=== PATIENT | male | born 1940 | race Caucasian/White ===

== ENCOUNTER 2019-06-14 16:41 | Inpatient (IN) | payer MEDICARE, BC ==
--- NOTE | 2019-06-14 18:45 | NUR ---
ADD: LATE ENTRY SPOKE WITH DAUGHTER WHO IS OUT OF STATE. NURSE EXPLAINED WHAT OUR UNIT DID FAR MEDICATIONS, GROUPS AND DISCHARGE PLANNING. WE HAVE A SCHEDULE FOR THE DAY, PHONE CALLS, ITEMS ALLOWED AND NOT ALLOWED ON UNIT, PRN MEDICATIONS SUCH ATIVAN, HALDOL AND GEODON CAN BE USED. NURSE EXPLAINED THAT WE CAN USE CERTAIN MEDICATIONS IF HE DOES BECOME COMBATIVE WITH STAFF. SHE INQURIED HOW WE KEEP THEM FROM FALLING. NURSE EXPLAINED WE HAVE CHAIR ALARMS, BED ALARMS THAT ACTIVE DURING THE DAY AND NIGHT. BED ALARMS ON THE BED UNDER THEIR BACK SO IT RINGS BEFORE THEY GET UP SO THE STAFF HEARS AT ALL TIMES. SHE GAVE A HISTORY STATING HIS AND HIM MOVED HER TO RETIRE. HIS PASSED IN 2012 AND SHE HAS NOT SEEN HIM SINCE THAT TIME. SHE STATED SHE WAS LEAVING TO COME TO [place] AND WOULD BE ARRIVING TUESDAY. NURSE EXPRESSED UNDERSTANDING. SHE STATED SHE DID NOT KNOW DISCHARGE PLANS AT THAT TIME. REPORTED INFORAMTION TO ONCOMING SHIFT. CODE STATUS RECIEVED FROM DAUGHTER VERBAL CONSENT.
[2019-06-14 22:34] VITALS: BP 145/87; BMI 23.3
--- NOTE | 2019-06-14 23:23 | NUR ---
PATIENT CAME TO THIS UNIT FROM [facility], BROUGHT BY EMS VIA STRETCHER. PATIENT HAS BEEN INCREASINGLY CONFUSED AND AGGRESSIVE, PATIENT IS A POOR HISTORIAN, HE CAN REMEMBER THINGS FROM LONG AGO, HE CURRENTLY THINKS THAT HIS IS HERE, HE IS ORIENTED TO SELF ONLY. HE HAS SHOWN AGGRESSION BY HOLDING HIS FIST TOWARD THIS NURSE AND THREATENING TO HIT. PATIENT WAS ORIENTED TO ROOM AND SHOWN WHERE HIS BATHROOM IS AND HOW TO USE HIS FONSECA FOR ASSISTANCE.
[2019-06-15] MEDS ORDERED: BAYER CHEWABLE81 MG PO (01:21)
[2019-06-15] MEDS ORDERED: COLACE100 MG PO (01:22)
[2019-06-15] MEDS ORDERED: SEROQUEL100 MG PO (01:22)
[2019-06-15] MEDS ORDERED: SEROQUEL50 MG PO (01:23)
[2019-06-15] MEDS ORDERED: TOPROL XL100 MG PO (01:24)
[2019-06-15] MEDS ORDERED: COZAAR25 MG PO (01:25)
[2019-06-15] MEDS ORDERED: NEXIUM40 MG PO (01:26)
[2019-06-15 08:02] LABS: BASOPHILS 0.4 % (0-2); EOSINOPHILS 1.5 % (0-7); HEMATOCRIT 49.8 % (42.0-54.0); HEMOGLOBIN 16.3 g/dL (13.5-17.5); LYMPHOCYTES 17.3 % (15-50); MCH 28.6 pg (26.0-34.0); MCHC 32.7 g/dL (31.0-37.0); MCV 87.4 fL (80.0-100.0); MEAN PLATELET VOLUME 9.5 fL (7.4-10.4); MONOCYTES 7.5 % (2-11); NEUTROPHILS 72.3 % (40-80); PLATELET COUNT 240 10x3/uL (130-400); RDW 14.6 % (11.5-14.5); WBC 7.2 10x3/uL (4.8-10.8)
[2019-06-15 08:25] LABS: ALBUMIN 3.5 g/dL (3.4-5.0); ANION GAP 13.8 mmol/L (8-16); BILIRUBIN - TOTAL 0.76 mg/dL (0.2-1.3); CALCIUM 9.7 mg/dL (8.5-10.1); CARBON DIOXIDE 26.4 mmol/L (21.0-32.0); CREATININE - SERUM 1.1 mg/dL (0.6-1.3); LDL-HDL RATIO 3.3 ratio (1.5-3.5); POTASSIUM - SERUM 4.2 mmol/L (3.5-5.1); PROTEIN - SERUM 7.8 g/dL (6.4-8.2); THYROID STIMULATING HORMONE 1.06 uIU/mL (0.36-3.74)
[2019-06-15 10:09] VITALS: BP 153/53
[2019-06-15 14:41] VITALS: Wt 65.1 kg
--- NOTE | 2019-06-15 17:24 | NUR ---
PT DAUGHTER CALLED TO CHECK ON HIM. PASSCODE GIVEN. NURSE GAVE UPDATE PT EATING AT THIS TIME. SHE STATED WELL HAS HE COME OUT OF HIS ROOM TODAY?" NURSE EXPLAINED THAT WE DO STAY IN THE DAYAREA TO DO ACTIVITIES AND GROUPS FOR THE DAY. SHE STATED "OH WELL HOW HAS HIS MOOD BEEN TODAY.?" NURSE EXPLAINED HE REALLY HAS NOT TALKED MUCH EXCEPT WHEN SPOKEN TOO AND PT COULD ONLY TELL HIS NAME AND NOTHING ELSE. NURSE EXPLAINED WE DO ORIENT THE PTS EVERYDAY AND WHEN NEEDED. SHE STATED "WELL YOU MIGHT HAVE TO TELL HIM A FEW TIMES." SHE WANTED TO KNOW IF THERE WAS ANYTHING SHE NEEDED TO BRING HIM AND IF THEY SENT HIS WALLET AND CHECKBOOK WITH HIM." NURSE STATED ALL ITEMS WERE SENT TO ED LOCKUP. SHE STATED THEY WOULD COME BY TOMORROW AND BRING CLOTHES AND PICKUP THE CHECKBOOK AND WALLET.
[2019-06-15 20:11] VITALS: BP 136/76
--- NOTE | 2019-06-15 22:47 | NUR ---
PATIENT IS VERY CONFUSED, ORIENTED TO SELF ONLY, NO MEDS DUE THIS EVENING, CAN NOT MAKE NEEDS KNOWN, DEPENDENT UPON STAFF FOR ADL'S, NOT ABLE TO EFFECTIVELY PARTICIPATE IN GROUP. WILL FOLLOW POC
[2019-06-16 05:08] LABS: RAPID PLASMA REAGIN Non Reactive (Non Reactive)
--- NOTE | 2019-06-16 08:07 | NUR ---
SPOKE WITH PT DAUGHTER CARLOS. PASSCODE GIVEN. SHE WANTED TO KNOW HOW HE IS DOING THIS MORNING. NURSE GAVE AN UPDATE: PT JUST GOT UP FOR BREAKFAST, PREVIOUS SHIFT REPORTED THAT HE HAD A GOOD NIGHT. SHE STATED "DO THE DOCTORS COME IN DAILY?" NURSE STATED THEY DID. SHE WANTED TO KNOW IF SHE COULD TALK TO THE DOCTOR SINCE SHE COULD NOT VISIT HER DAD. NURSE EXPLAINED OUR MICA MINER BLASTING WOULD SET-UP OUR DOCTOR PHONE CALLS AFTER SEVERAL DAYS OF STAFF MEETING AND THEN ALL THE STAFF DOING WHAT WE CALL TEAM MEET. SHE STATED HAS HE COME IN YET?" NURSE ASKED FOR CLARIFICATION ON WHAT SHE MEANT. SHE STATED YESTERDAY YALL SAID HE DID NOT KNOW WHERE HE WAS AT. NURSE DID EXPLAIN HE HAS NOT BEEN ORIENTED SINCE HE HAS BEEN WITH US. HE IS ORIENTED TO HIS NAME ONLY." STATEMENT WAS MADE STATING "THATS NOT WHAT THEY SAID YESTERDAY." SHE THANKED THE NURSE. STATED SHE W[place] TODAY AND WOULD CHECK IN LATER.
--- NOTE | 2019-06-16 08:41 | HP ---
PATIENT: KATJA MAZARIEGOS MEDICAL RECORD: [id number] ACCOUNT: [id number] LOCATION:[facility]1 : 38 ADMISSION DATE: 06/14/19 PCP: DEJUAN RODRIGUEZ MD HISTORY AND PHYSICAL EXAMINATION IDENTIFYING DATA: The patient is 78 years old and he is admitted to the hospital on a voluntary basis. CHIEF COMPLAINT: Confusion. HISTORY OF PRESENT ILLNESS: The patient lives at home alone. Apparently, his 7 years ago and his children live out of state. He clearly has developed dementia that is advanced. He fell at home and was taken to [facility]. He was found to have a small subdural hematoma that was not in need of surgical attention. He was sent to the rehab unit there for deconditioning, but was unable to adequately participate in activities there, was confused, agitated, and even combative with the staff. They subsequently referred him here. It is unclear where he fell, may not have been at home, but in a parking lot of the store of some kind, the information he gives and the records are not consistent. PAST MEDICAL HISTORY: Significant for hypertension, previous WI, chest pain, and diverticular disease. PAST SURGICAL HISTORY: He has also had a radical prostatectomy, tonsillectomy, and hemorrhoidectomy. He has also had cardiac angioplasty. PAST PSYCHIATRIC HISTORY: Unknown. FAMILY HISTORY: Unknown. ALLERGIES: INCLUDE RESTORIL AND STATIN DRUGS. HE SIMILARLY DEVELOPED A RASH TO THE TETANUS TOXOID. CURRENT MEDICATIONS: Include Metoprolol, Plavix, Cozaar, Nexium, Lexapro, pravastatin, and Metamucil. SOCIAL HISTORY: As mentioned above, the patient is originally from [place]. He has no family here. His is and he is a former cigarette smoker, but has no history of alcohol abuse. MENTAL STATUS EXAMINATION: The patient is awake, alert, and oriented to person and place, but not to time or situation. His mood is flat. His affect is constricted. Thought processes are circumstantial. Memory, concentration, and abstraction abilities are moderately impaired and he denies any intent to harm himself or others as well as any active psychotic symptoms. ASSESSMENT: AXIS I: Major neurocognitive disorder of the Alzheimer's type with behavioral disturbances. AXIS II: None. AXIS III: Hypertension, coronary artery disease, and subdural hematoma. AXIS IV: Moderate. AXIS V: Global assessment of functioning 30. HISTORY AND PHYSICAL [id number] KATJA MAZARIEGOS PLAN: At this time, the patient is admitted to the hospital for a comprehensive evaluation. He will be treated with mood stabilizing and memory enhancing medications as deemed appropriate. His long-term prognosis is guarded. He clearly is going to need 56-zggq-g-day supervision and it is my understanding that one of his children are coming from [place] soon to assist with his care. TRANSINT:[id number] Voice Confirmation ID: [id number] DOCUMENT ID: [id number] VALERIO BRICENO MD at 0841 CC: [id number] DICTATION DATE: 06/15/191903 OIL AGENT: 06/15/192016 ADM IN [facility] [address] [place] [address]
[2019-06-16 10:35] VITALS: BP 163/88
[2019-06-16 20:00] VITALS: BP 117/64
--- NOTE | 2019-06-16 21:54 | NUR ---
PATIENT IS VERY CONFUSED, EASILY AGITATED, DOES NOT KNOW HIS PHYSICAL LIMITATIONS, NO MEDS DUE @ HS. WILL FOLLOW POC
[2019-06-17 08:47] VITALS: BP 135/67
--- NOTE | 2019-06-17 13:10 | NUR ---
RECEIVED IN HALLWAY OUTSIDE OF NURSES STATION. VERY CONFUSED. ANXIOUS. AGITATED. AGGRESSIVE WITH CARE AND REDIRECTION. YELLING OUT. CONTINUOUSLY GETTING UP WITHOUT ASSISTANCE. UNABLE TO REDIRECT. PRN ATIVAN 0.5 MG IM GIVEN FOR ANXIETY AND PRN HALDOL 2 MG GIVEN FOR PSYCHOTIC UNSAFE BEHAVIOR. CONTINUES TO BE UNCOOPERATIVE AND RESISTIVE AT THIS TIME. CONTINUE PLAN OF CARE.
--- NOTE | 2019-06-17 13:42 | PN ---
PATIENT:KATJA MAZARIEGOS MEDICAL RECORD: [id number] LOCATION:[facility] ADMISSION DATE: 06/14/19 PROGRESS NOTE DATE OF SERVICE: 06/16/2019 SUBJECTIVE: The patient's case was discussed with staff. He has no new complaint. OBJECTIVE: The patient is in good behavioral control. He has no thoughts of harming himself or others. He did sleep well last night. ASSESSMENT: Dementia. PLAN: The patient will be maintained on current medicines. His long-term prognosis is guarded. His daughter is coming from out of state today. Hopefully, she is going to want to assist in his placement and care. TRANSINT:[id number] Voice Confirmation ID: [id number] DOCUMENT ID: [id number] VALERIO BRICENO MD at 1342 CC: [id number] DICTATION DATE: 06/16/19 0858 BI TRI OPERATOR: 06/16/19 0929 ADM IN [facility] [address] [place] [address]
--- NOTE | 2019-06-17 13:45 | NUR ---
PRN ATIVAN AND HALDOL INEFFECTIVE. PATIENT IS STILL AGGRESSIVE WITH STAFF. YELLING OUT. CONTINUOUSLY GETTING UP. UNCOOPERATIVE AND RESISTIVE WITH CARE AND REDIRECTION.
--- NOTE | 2019-06-17 19:14 | NUR ---
RECEIVED IN DAYROOM. SITTING IN A RECLINER WITH EYES OPEN. CALM AND COOPERATIVE WITH CARE AND ASSESSMENT. NO SIGNS OF AGGRESSION. CONFUSED. REDIRECT AND REORIENT NEEDED. CONTINUES TO SIT CALMLY IN DAYROOM. CONTINUE PLAN OF CARE.
[2019-06-17 19:24] VITALS: BP 128/57
[2019-06-18 08:46] VITALS: BP 144/79
--- NOTE | 2019-06-18 12:00 | NUR ---
RECEIVED IN HALLWAY OUTSIDE OF NURSES STATION. CALM AND COOPERATIVE WITH CARE AND ASSESSMENT. NO AGITATION. NO AGGRESSION TODAY. REDIRECT AND REORIENT NEEDED. EATING LUNCH AT THIS TIME. CONTINUE PLAN OF CARE.
--- NOTE | 2019-06-18 14:00 | NUR ---
WALLET, CHECK BOOK, WATCH, KEYS, AND MONEY SENT HOME WITH DAUGHTER, CARLOS.
--- NOTE | 2019-06-18 21:09 | NUR ---
B.) PT IS ALERT AND ORIENTED TO SELF ONLY. HE HAS POOR INSIGHT INTO HIS SITUATION. HE IS UNABLE TO AMBULATE WITHOUT ASSIST. HE IS CALM AND COOPERATIVE WITH STAFF. HE HAS A FLAT AFFECT AND IS CONFUSED ABOUT WHERE HE IS AT THIS TIME. I.) PROVIDED PM MEDICATIONS PRESCRIBED. REDIRECT OFTEN. R.) COMPLIANT WITH ALL MEDICATIONS. EASY TO REDIRECT AT TIMES. P.) WILL CONTINUE TO MONITOR.
[2019-06-18 21:35] VITALS: BP 106/60
[2019-06-19 07:53] VITALS: BP 129/71
--- NOTE | 2019-06-19 08:30 | NUR ---
RECEIVED IN HALLWAY OUTSIDE OF NURSES STATION. CALM AND COOPERATIVE WITH CARE AND ASSESSMENT. NO AGGRESSIVE BEHAVIOR. REDIRECT AND REORIENT NEEDED. EATING BREAKFAST AT THIS TIME. CONTINUE PLAN OF CARE.
--- NOTE | 2019-06-19 09:25 | NUR ---
staff continue to attempt to get the UA but pt is combative with staff during these attempts. will continue to attempt.
--- NOTE | 2019-06-19 13:39 | PN ---
PATIENT:KATJA MAZARIEGOS MEDICAL RECORD: [id number] LOCATION:[facility]rit[facility]112 ADMISSION DATE: 06/14/19 PROGRESS NOTE DATE OF SERVICE: 06/18/2019 SUBJECTIVE: The patient's case was discussed with staff. He has no new complaint. OBJECTIVE: The patient's daughter has made it to town, but at this point she is looking for guidance from us about what her father needs. She is concerned that he is very different and how he was when she talked to him on the phone just a few weeks ago. ASSESSMENT: Dementia. PLAN: This patient has an advanced cognitive disease, probably Alzheimer's. The fall and the subdural hematoma are not the cause of his current mental status. This is a longstanding process and he is well advanced in it. He cannot live independently. The daughter is wanting him to get back to the situation he was in so that she can take him home and maybe stay with him a little while and then leave and go back to [place]. That is an unrealistic expectation. He is in need of 62-kdgx-s-day supervision. What needs to be worked out at this point is which setting will be the least restrictive. TRANSINT:[id number] Voice Confirmation ID: [id number] DOCUMENT ID: [id number] VALERIO BRICENO MD at 1339 CC: [id number] DICTATION DATE: 06/18/19 1542 NUT PACKER: 06/18/19 1550 ADM IN [place] [id number] [place] [address]
--- NOTE | 2019-06-19 13:39 | PN ---
PATIENT:KATJA MAZARIEGOS MEDICAL RECORD: [id number] LOCATION:[facility] ADMISSION DATE: 06/14/19 PROGRESS NOTE DATE OF SERVICE: 06/17/2019 SUBJECTIVE: The patient's case was discussed with staff. He has no new complaint. OBJECTIVE: The patient is sleeping and eating reasonably well. He has limited insight about his situation. He has been calmer since the Xanax was started. ASSESSMENT: Dementia. PLAN: Current medicines have been reviewed and will be maintained. Long-term prognosis is guarded. Both supportive and educational interventions were made. TRANSINT:[id number] Voice Confirmation ID: [id number] DOCUMENT ID: [id number] VALERIO BRICENO MD at 1339 CC: [id number] DICTATION DATE: 06/18/19 1541 NETWORK SECURITY ENGINEER: 06/18/19 1545 ADM IN [place] [id number] [place] [id number]
[2019-06-19 19:30] VITALS: BP 127/70
--- NOTE | 2019-06-19 19:32 | NUR ---
RECEIVED IN BEDROOM. RESTING IN BED WITH EYES OPEN. RESTLESS. ATTEMPTS TO STAND WITHOUT ASSIST. JAKY ALARM ON. CALM AND COOPERATIVE WITH CARE AND ASSESSMENT. NO SIGNS OF AGGRESSION. CONTINUES TO REST EYES OPEN ON BED. CONTINUE PLAN OF CARE.
--- NOTE | 2019-06-19 23:33 | NUR ---
ATTEMPTS TO STAND WITHOUT ASSIST CONSTANTLY.
[2019-06-20 07:46] VITALS: BP 148/77
[2019-06-20 08:00] VITALS: BP 148/77
--- NOTE | 2019-06-20 10:20 | NUR ---
PT SITTING IN CHAIR WITH EYES OPEN. RESP EVEN AND NONLABORED. PT IS CONFUSED AND NOT ORIENTED. REDIRECT AND REORIENT NEEDED. PT ATTEMPTS TO STAND WITHOUT ASSISTANCE. PT COMPLIANT WITH CRUSH MEDS, VITALS AND ASSESSMENTS. CHAIR ALARM IN PLACE AND ACTIVE. WILL CONT PLAN OF CARE.
--- NOTE | 2019-06-20 11:20 | PN ---
PATIENT:KATJA MAZARIEGOS MEDICAL RECORD: [id number] LOCATION:[facility]rit[facility]112 ADMISSION DATE: 06/14/19 PROGRESS NOTE DATE OF SERVICE: 06/19/2019 SUBJECTIVE: The patient's case was discussed with staff. He has no new complaint. OBJECTIVE: The patient is in good behavioral control. He has poor insight about his situation. He tolerates his medicines well. ASSESSMENT: Dementia. PLAN: Current medicines have been reviewed and will be maintained. The patient fell this morning. Dr. Lezama was here and addressed the situation and it does not appear he has any injury. TRANSINT:[id number] Voice Confirmation ID: [id number] DOCUMENT ID: [id number] VALERIO BRICENO MD at 1120 CC: [id number] DICTATION DATE: 06/19/19 1421 CONDITIONING ROOM WORKER: 06/19/19 1528 ADM IN [place] [id number] [place] [id number]
[2019-06-20 20:41] VITALS: BP 143/70
--- NOTE | 2019-06-20 21:58 | NUR ---
B)RECEIVED PATIENT SITTING IN A CHAIR AT THE NURSES STATION. CONFUSED AND DISORIENTED. WHEN ASKED IF HE KNOWS WHERE HE IS PATIENT RESPONDS "WHERE YOU ARE. WHERE YOU WERE LAST WEEK. RELATES REASON FOR HOSPITALIZATION "I COME HERE QUITE OFTEN." I)ADMINISTER MEDS AND MONITOR COMPLIANCE. REORIENT NEEDED. R)MED COMPLIANT. POOR REORIENTATION DUE TO IMPAIRED ABILITY TO COMPREHEND, PROCESS AND RETAIN INFORMATION. P)CONTINUE POC AND PROVIDE SAFE ENVIRONMENT.
[2019-06-21 11:00] VITALS: BP 144/75
--- NOTE | 2019-06-21 12:45 | NUR ---
PT SITTING IN CHAIR AT TABLE AT THIS TIME. CONFUSED AND DISORIENTED. PT CAN NOT STATE WHERE HE IS AT THIS TIME. PT IS ALERT TO SELF ONLY. REDIRECT AND REORIENT NEEDED. POOR REORIENATTION DUE TO IMPAIRED ABILITY TO COMPREHEND. CHAIR ALARM IN PLACE AND ACTIVE. WILL CONT TO MONITOR. COMPLIANT WITH MEDS, VITALS AND ASSESSMENTS. WILL CONT PLAN OF CARE.
--- NOTE | 2019-06-21 13:45 | NUR ---
Nutrition Follow-up: PO intake fluctuates although better yesterday (50-100%) than the day before (0-20%). Noted Megace started 06/19. Diet: Regular PO intake: 51% avg x 9 meals Wt: 157# (06/16); 157# (06/14) Last BM: 06/19 No new labs Meds noted: Megace, vitamin D, Senokot, Protonix -Encourage PO intake and honor food preferences. -Offer nutrition supplements. -Monitor wt. -RD following.
--- NOTE | 2019-06-21 14:05 | PN ---
PATIENT:KATJA MAZARIEGOS MEDICAL RECORD: [id number] LOCATION:[facility] ADMISSION DATE: 06/14/19 PROGRESS NOTE DATE OF SERVICE: 06/20/2019 SUBJECTIVE: The patient's case was discussed with staff. He has no new complaint. OBJECTIVE: The patient has been significantly agitated and difficult to redirect. He has very poor insight about his situation. ASSESSMENT: Dementia. PLAN: The patient is going to be treated with a low dose of Trilafon. Trilafon is being used to treat his underlying confused, agitated behavior. He will be monitored for clinical changes associated with its use. His long-term prognosis is guarded. TRANSINT:[id number] Voice Confirmation ID: [id number] DOCUMENT ID: [id number] VALERIO BRICENO MD at 1405 CC: [id number] DICTATION DATE: 06/20/19 1141 COT ASSEMBLER: 06/20/19 1634 ADM IN [facility] [address] [place] [address]
--- NOTE | 2019-06-21 17:52 | NUR ---
SPOKE WITH PT DAUGHTER. PASSCODE GIVEN. NURSE CALLED TO CHECK IF PT WAS EATING. NURSE LET THE DAUGHTER KNOW HE LAID DOWN TO SLEEP AND IN ABOUT 20 MINUTES WE WOULD BE WAKING THEM UP TO DO VITALS. SHE VERBALIZIED UNDERSTANDING AND WOULD CALL BACK.
--- NOTE | 2019-06-21 22:25 | NUR ---
B) Patient is alert and oriented to self, very confused and can not understand simple instructions unless repeated several times, I) Administered scheduled medications as ordered, monitored for safety, redirected as needed, R) Medication compliant, poor short term memory, unable to retain information, P) Continue plan of care.
--- NOTE | 2019-06-22 09:37 | NUR ---
SPOKE WITH PT DAUGHTER THIS SHIFT. PASSCODE GIVEN. SHE WANTED TO KNOW IF HE HAD A BETTER NIGHT THAN THE PREVIOUS NIGHT. NURSE EXPLAINED THAT FARM SERVICE ADVISER REPORTED THAT HE WAS UP MOST OF THE NIGHT PACING. SHE STATED "HE WAS PACING? WALKING BY HIMSELF?" NURSE STATED "HE WAS WALKING UNASSISTED BUT MONITORED BY STAFF. PHYSICAL THERAPY DID SIGN HIM ON STATED HE WAS OKAY TO AMBUALTE ASSISTED OR WITH WALKER." SHE VERBALIZIED SOME UNDERSTANDING. SHE STATED SHE JUST WANTED TO SEE HOW HE WAS DOING AND SHE WOULD CHECK BACK LATER.
[2019-06-22 11:05] VITALS: BP 140/82
--- NOTE | 2019-06-22 11:35 | NUR ---
PT IS PACING AT THIS TIME. PT IS UNSTEADY AND STAFF ASSISTING PT WITH AMBULATION. PT IS CONFUSED AND DISORIENTED. ALERT TO SELF ONLY. POOR INSIGHT TO SITUATION. PT IS LOOKING FOR HIS KEYS AND WALLET. STAFF ATTEMPTS TO REDIRECT. REDIRECT AND REORIENT NEEDED. PT IS HALLUCINATING PICKING AT THINGS IN THE AIR. PT IS DEMANDING HIS WALLET, KEYS AND LEAVE. REDIRECT PT AT THIS TIME. WILL CONT TO MONITOR.
--- NOTE | 2019-06-22 12:50 | NUR ---
PT IS PACING AND EXIT-SEEKING. PT IS UNREDIRECTABLE AT THIS TIME. PT IS YELLING OUT, WANTING TO CALL A VENEER JOINTER HELPER AND [employer] PEOPLE. UNSTEADY ON HIS FEET FROM PACING ALL NIGHT. ATIVSN 0.5 MG PO ADMINISTERED PER DR. BRICENO ORDER FOR ANXIETY. WILL REASSESS.
--- NOTE | 2019-06-22 13:48 | NUR ---
PRN NOT EFFECTIVE PT YELLING AT OTHER PEERS AT THIS TIME.
--- NOTE | 2019-06-22 14:53 | NUR ---
PT CONTS TO YELL OUT. ATTEMPTING TO GET UP, LOOKING FOR HIS KEYS, WANTING TO LEAVE AND MILD AGIATION WHEN REDIRECTED. ATIVAN 0.[address] BRICENO ORDER. WILL CONT TO MONITOR.
--- NOTE | 2019-06-22 16:23 | NUR ---
PT CONTS TO BE 1:1 DUE TO INCREASED AGITATION AND DROWSINESS. PT IS DROWSY. WILL CONT TO MONITOR.
--- NOTE | 2019-06-22 17:52 | NUR ---
DELL SON CALLED. PASSCODE GIVEN. HE SPOKE WITH PT. HE ASKED WHEN HE COME BACK TO [place] TO GET GUARDIANSHIP IF HE COULD STOP TO SEE HIS DAD THROUGH THE DOOR. NURSE STATED IF HE CALLED HE COULD. THAT WOULD BE FINE.
[2019-06-22 20:00] VITALS: BP 125/65
--- NOTE | 2019-06-22 23:24 | NUR ---
B.) PT IS ALERT AND ORIENTED TO SELF ONLY. HE IS RECEIVED IN THE NURSES STATION. HE IS UNSTEADY ON HIS FEET AND VERY CONFUSED SO HE IS TO BE UNDER 1:1 SUPERVISION. HE HAS NO SHORT TERM MEMORY AND IS RESTLESS AND ATTEMPTS TO GET UP FREQUENTLY. I.) PROVIDED PM MEDICATIONS PRESCRIBED. REDIRECT CONSTANTLY. R.) COMPLIANT WITH ALL MEDICATIONS. DIFFICULT TO REDIRECT. P.) WILL CONTINUE TO MONITOR.
[2019-06-23 08:07] VITALS: BP 119/60
--- NOTE | 2019-06-23 08:39 | NUR ---
The patient is in the nurses station resting easily, eyes closed, even, unlabored respirations. At this time he is not awakening for the assessment or vital signs. Will monitor his mood and behavior as he awakens. Provide prescribed meds. Continue POC.
[2019-06-23 10:13] VITALS: BP 119/60
--- NOTE | 2019-06-23 20:42 | NUR ---
B.) PT IS ALERT AND ORIENTED TO SELF AND SITUATION. HE IS UNSURE OF WHAT HOSPITAL HE IS IN AT THIS TIME. HE IS RECEIVED OUTSIDE THE NURSING STATION SITTING IN A GERICHAIR. HE IS YELLING OUT AT TIMES. HALLUCINATING FAMILY MEMBERS. HE IS COUCHING UP COPIOUS AMOUNTS OF YELLOW TINGED MUCUS. I.) PROVIDED PM MEDICATIONS PRESCRIBED. REDIRECT OFTEN. R.) COMPLIANT WITH ALL MEDICATIONS. DIFFICULT TO REDIRECT AT TIMES. P.) WILL CONTINUE TO MONITOR.
[2019-06-24 05:17] VITALS: BP 133/73
--- NOTE | 2019-06-24 07:39 | NUR ---
The patient has been yelling and screaming for [employer] or to get up and go home. Staff stand by him and he says "help, help" ask him what he needs and he says "I forgot" Staff step away and he screams and screams. Provide ativan 0.5 mg po and haldol 2 mg po. Monitor the patient's mood and behavior.
[2019-06-24 08:24] VITALS: BP 159/86
--- NOTE | 2019-06-24 13:35 | NUR ---
The patient has started to yell and scream and staff stood him up and walked him so that he can get off of his bottom, but he continues to scream after he was sat down. He yells "Please" but doesn't say what he needs. Provide ativan 0.5 mg po, will monitor.
--- NOTE | 2019-06-24 14:30 | NUR ---
The patient is quiet only if someone sits right next to him.
--- NOTE | 2019-06-24 15:59 | NUR ---
The patient continues to yell.
--- NOTE | 2019-06-24 16:33 | NUR ---
The patient continues to yell out, provided a pillow behind his neck, he threw it on the floor. Repositioned him, gave him iced water, but he continues to yell and ask for help, he is calling out different names. Haldol 2 mg IM in right deltoid given, will monitor.
--- NOTE | 2019-06-24 17:30 | NUR ---
The patient ate a little bit of dinner, he did not scream at that time. Haldol 2 mg IM in his left deltoid. Monitor behavior.
--- NOTE | 2019-06-24 17:30 | NUR ---
The patient ate dinner and he was quiet while he was eating, but now that he is finished eating he is back to yelling. Calling out to his Boss and asking for help, yelling "Fire in the hole."
--- NOTE | 2019-06-24 18:38 | NUR ---
RECEIVED IN HALLWAY OUTSIDE OF NURSES STATION. RESTING QUIETLY IN A RECLINER WITH EYES OPEN. CALM AND COOPERATIVE WITH CARE AND ASSESSMENT. NO SIGNS OF AGGRESSSION. REDIRECT AND REORIENT NEEDED. CONTINUES TO REST QUIETLY IN RECLINER. CONTINUE PLAN OF CARE.
--- NOTE | 2019-06-24 18:49 | NUR ---
RECEIVED IN HALLWAY SITTING IN A RECLINER OUTSIDE OF NURSES STATION. YELLING OUT LOUDLY. COOPERATIVE WITH CARE AND ASSESSMENT. NO SIGNS OF AGGRESSION. INCREASING RESTLESSNESS. REDIRECT AND REORIENT NEEDED. CONTINUES TO YELL OUT LOUDLY. CONTINUE PLAN OF CARE.
[2019-06-24 18:55] VITALS: BP 131/69
--- NOTE | 2019-06-25 00:19 | NUR ---
PATIENT YELLING OUT TO UNSEEN OTHERS. VERY CONFUSED. INCREASING ANXIETY. PRN ATIVAN 0.5 MG IM GIVRN FOR ANXIETY AND PRN HALDOL 2 MG IM GIVEN FOR PSYCHOTIC BEHAVIOR. CONTINUE TO MONITOR.
--- NOTE | 2019-06-25 04:40 | NUR ---
RESTING QUIETLY WITH EYES CLOSED.
[2019-06-25 08:29] VITALS: BP 163/78
--- NOTE | 2019-06-25 12:00 | NUR ---
RECEIVED IN HALLWAY OUTSIDE OF NURSES STATION. CALM AND COOPERATIVE WITH CARE AND ASSESSMENT. YELLING OUT AT TIMES. BECOMES AGITATED WITH REDIRECTION. REDIRECT AND REORIENT NEEDED. EATING AT THIS TIME. CONTINUE PLAN OF CARE.
--- NOTE | 2019-06-25 13:26 | PN ---
PATIENT:KATJA MAZARIEGOS MEDICAL RECORD: [id number] LOCATION:[facility] ADMISSION DATE: 06/14/19 PROGRESS NOTE DATE OF SERVICE: 06/21/2019 SUBJECTIVE: The patient's case was discussed with staff. He has no new complaint. OBJECTIVE: The patient is in good behavioral control with limited insight about his situation. He has been yelling some, but does appear to be calmer. TRANSINT:[id number] Voice Confirmation ID: [id number] DOCUMENT ID: [id number] VALERIO BRICENO MD at 1326 CC: [id number] DICTATION DATE: 06/21/19 1508 COIL TAPER: 06/21/19 1526 ADM IN [place] [id number] [place] [address]
--- NOTE | 2019-06-25 18:57 | NUR ---
RECEIVED IN DAYROOM. SITTING IN A RECLINER AT THE TABLE. CALM AND COOPERATIVE WITH CARE AND ASSESSMENT. NO SIGNS OF AGGRESSION. NOT YELLING OUT AT THIS TIME. REDIRECT AND REORIENT NEEDED. CONTINUES TO SIT CALMLY. CONTINUE PLAN OF CARE.
[2019-06-25 19:17] VITALS: BP 194/150
--- NOTE | 2019-06-25 22:52 | NUR ---
AWAKE. YELLING OUT AT TIMES.
[2019-06-26 07:59] VITALS: BP 158/83
--- NOTE | 2019-06-26 10:28 | PN ---
PATIENT:KATJA MAZARIEGOS MEDICAL RECORD: [id number] LOCATION:[facility] ADMISSION DATE: 06/14/19 PROGRESS NOTE DATE OF SERVICE: 06/25/2019 SUBJECTIVE: The patient's case was discussed with staff. He has no new complaint. OBJECTIVE: The patient was significantly and seriously agitated last night. He did receive p.r.n. Haldol and Ativan secondary to that agitation. Today, he is a little sedated, probably secondary to that medication he received at midnight. ASSESSMENT: Dementia. PLAN: I am going to increase the patient's Namenda. Namenda is being used to treat his underlying cognitive impairment. He will be monitored for clinical changes associated with its use. TRANSINT:[id number] Voice Confirmation ID: [id number] DOCUMENT ID: [id number] VALERIO BRICENO MD at 1028 CC: [id number] DICTATION DATE: 06/25/19 1527 VISITOR SERVICES TECHNICIAN: 06/25/19 2317 ADM IN [place] [id number] [place] [id number]
--- NOTE | 2019-06-26 11:13 | NUR ---
RECEIVED IN HALLWAY OUTSIDE OF NURSES STATION. CALM AND COOPERATIVE WITH CARE AND ASSESSMENT. NO AGITATION. NO AGGRESSION. REDIRECT AND REORIENT NEEDED. PARTICIPATING IN GROUP AT THIS TIME. CONTINUE PLAN OF CARE.
--- NOTE | 2019-06-26 11:32 | NUR ---
SW SPOKE TO PT'S DTR. SW GAVE UPDATE ON PT'S CONDITION. SHE WANTS PT REFERRED TO [facility]. SW EXPLAINED WHEN PT IS MORE STABLE SW WILL DO A REFERRAL. PT'S DTR VOICED UNDERSTANDING OF DISCUSSION AND STATED SHE WAS APPRECIATIVE OF PT'S CARE.
--- NOTE | 2019-06-26 19:49 | NUR ---
RECEIVED IN DAYROOM. RESTING IN RECLINER WITH EYES CLOSED. CALM AND COOPERATIVE WITH CARE AND ASSESSMENT. NO SIGNS OF AGGRESSION. REDIRECT AND REORIENT NEEDED. RESTING QUIETLY IN A RECLINER WITH EYES CLOSED. CONTINUE PLAN OF CARE.
[2019-06-26 21:00] VITALS: BP 119/59
[2019-06-27 09:04] VITALS: BP 127/81
--- NOTE | 2019-06-27 09:39 | PN ---
PATIENT:KATJA MAZARIEGOS MEDICAL RECORD: [id number] LOCATION:[facility] ADMISSION DATE: 06/14/19 PROGRESS NOTE DATE OF SERVICE: 06/26/2019 SUBJECTIVE: The patient's case was discussed with staff. He has no new complaint. OBJECTIVE: The patient denies intent to harm himself or others. He generally is tolerating his medicines well. ASSESSMENT: Dementia. PLAN: Current medicines have been reviewed and will be maintained. Long-term prognosis is guarded. Both supportive and educational interventions were made. TRANSINT:[id number] Voice Confirmation ID: [id number] DOCUMENT ID: [id number] VALERIO BRICENO MD at 0939 CC: [id number] DICTATION DATE: 06/26/19 1301 DECALER: 06/26/19 1641 ADM IN [facility] [address] [place] [address]
--- NOTE | 2019-06-27 12:00 | NUR ---
RECEIVED IN HALLWAY OUTSIDE OF NURSES STATION. CALM AND COOPERATIVE WITH CARE AND ASSESSMENT. NO AGGRESSIVE BEHAVIOR BUT BECOMES AGITATED WITH REDRIECTION AT TIMES. REDIRECT AND REORIENT NEEDED. EATING LUNCH AT THIS TIME. CONTINUE PLAN OF CARE.
[2019-06-27 20:38] VITALS: BP 126/75
--- NOTE | 2019-06-27 20:44 | NUR ---
B.) PT IS ALERT AND ORIENTED TO SELF ONLY. HE HAS POOR INSIGHT INTO HIS SITUATION. HE IS RECEIVED OUTSIDE THE NURSES STATION IN A GERICHAIR. HE YELLS OUT AT TIMES. HE HAS A PRODUCTIVE COUGH. I.) PROVIDED PM MEDICATIONS. REDIRECT OFTEN. R.) COMPLIANT WITH ALL MEDICATIONS. EASY TO REDIRECT A TIMES. P.) WILL CONTINUE TO MONITOR.
[2019-06-28 08:56] VITALS: BP 144/66
--- NOTE | 2019-06-28 10:07 | NUR ---
REC'D PT LAYING IN BED THIS A.M. PT SLEPT 7.2 HOURS. PREVIOUS SHIFT REPORTED PT YELLING OUT AT TIMES. PT IS ALERT TO SELF ONLY. CONFUSED AND DISORIENTED. PT HAS POOR INSIGHT TO SITUATION. PT WAS YELLING OUR DURING NURSE ASSESSMENT STATING "HELP. HELP. HELP" WHEN ASKED PT COULD NOT STATE WHY HE NEEDED HELP. PT IS COMPLAINT WITH MEDS, VITALS AND ASSESSMENTS. PT DOES HAVE A COUGH THAT IS AT TIMES PRODUCTIVE. PT DOES HAVE A RED AREA NOTED TO BUTTOCKS. CHAIR ALARM IN PLACE AND ACTIVE. NO BEHAVIORS NOTED FROM PREVIOUS SHIFT. WILL CONT PLAN OF CARE.
--- NOTE | 2019-06-28 13:01 | PN ---
PATIENT:KATJA MAZARIEGOS MEDICAL RECORD: [id number] LOCATION:[facility] ADMISSION DATE: 06/14/19 PROGRESS NOTE DATE OF SERVICE: 06/26/2019 SUBJECTIVE: The patient's case was discussed with staff. He has no new complaint. OBJECTIVE: The patient is not sleeping adequately. He is disorganized. He is only partially oriented. He denies that he would seek to harm himself or others. ASSESSMENT: Dementia. PLAN: The patient will be treated with trazodone at a higher dose. Trazodone is being used to treat his underlying insomnia. He will be monitored for clinical changes associated with its use. TRANSINT:[id number] Voice Confirmation ID: [id number] DOCUMENT ID: [id number] VALERIO BRICENO MD at 1301 CC: [id number] DICTATION DATE: 06/27/19 1649 SORTER PRICER: 06/28/19 0040 ADM IN [place] [id number] [place] [id number]
--- NOTE | 2019-06-28 14:32 | NUR ---
Nutrition Follow-up: Pt not eating well. Ate 0-20% of meals yesterday. Diet: Regular, Mech Soft PO intake: 17% avg x 9 meals Wt: 155# (06/23); 157# (06/16); 157.8# (06/13) Last BM: 06/25 No new labs Meds noted: Megace, vitamin D, Senokot, Protonix -Encourage PO intake and honor food preferences within diet restrictions. -+Ensure with meals. -Monitor wt. -RD following.
--- NOTE | 2019-06-28 18:33 | NUR ---
PT CONTS TO COUGH UP GREEN MUCOUS AND COUGHING. PT TOLERATES COUGH MEDICINE WELL. WILL CONT TO MONITOR. LUNG SOUNDS CONT TO BE CLEAR.
[2019-06-28 19:32] VITALS: BP 120/58
--- NOTE | 2019-06-28 20:21 | NUR ---
B.) PT IS ALERT AND ORIENTED TO SELF ONLY. HE IS CALM AND COOPERATIVE WITH STAFF. HE CO OF LEFT SHOULDER PAIN. HE IS RECIEVED IN THE DAYROOM WATCHING TV. I.) PROVIDED PM MEDICATIONS PRESCRIBED. PROVIDED A HEATING PAD TO HIS LEFT SHOULDER. REDIRECT OFTEN. R.) COMPLIANT WITH ALL MEDICATIONS. EASY TO REDIRECT. P.) WILL CONTINUE TO MONITOR.
--- NOTE | 2019-06-29 07:56 | NUR ---
The patient is awake and alert, he is pleasant with less yelling this am. He is more awake and he is attempting to converse with the other patients. He tries to stand and walk, but needs staff assist to stand. Provide prescribed meds. The patient is compliant with meds. He has poor insight into his situation. He said "I'll be doing fine when I get out of here." Continue POC.
[2019-06-29 08:41] VITALS: BP 129/62
--- NOTE | 2019-06-29 12:58 | NUR ---
On assessing the patients buttocks, noted a small open area to the inner right side of his buttocks. It is approximately 3cm x 3cm. Applied a mepilex and the patient is sitting on a kumar pad. Will monitor.
--- NOTE | 2019-06-29 14:23 | NUR ---
[facility].
[2019-06-29 19:49] VITALS: BP 122/76
--- NOTE | 2019-06-29 19:57 | NUR ---
PATIENT IS VERY CONFUSED, ONLY KNOWS HIMSELF, PLEASANT, GOOD AFFECT, TAKES MEDS, CAN MAKE SIMPLE MEDS KNOWN, DOES NOT COMPREHEND WELL. WILL FOLLOW POC
[2019-06-30 07:45] VITALS: BP 150/82
--- NOTE | 2019-06-30 10:23 | NUR ---
Family called and requested a med list, they said they will come by and bring his glasses. Daughter requests to see him through the glass door when she comes to get med list.
--- NOTE | 2019-06-30 10:51 | NUR ---
The patient is sleepy this am, he woke up to eat a couple bites of food and drink milk and water. He is yelling out at times, but he doesn't ever say what he needs. He has not shown any aggression today. Provide prescribed meds. The patient is compliant with meds. Continue POC,
--- NOTE | 2019-06-30 12:54 | NUR ---
Provided a shave for the patient.
--- NOTE | 2019-06-30 13:52 | NUR ---
The patient's family is here and they are visiting through the window. The patient will not open his eyes.
[2019-06-30 19:32] VITALS: BP 102/67
--- NOTE | 2019-06-30 22:29 | NUR ---
B)RECEIVED PATIENT SITTING IN THE DAYRROOM. ANOTHER PEER SITS BY HIM CALLING HIM DADYOLY AND TRIES TO CARE FOR HIM. CONFUSED AND DISORIENTED. LESS VERBAL THIS EVENING. I)ADMINISTER MEDS AND MONITOR COMPLIANCE. REORIENT NEEDED. R)MED COMPLIANT. POOR REORIENTATION DUE TO IMPAIRED ABILITY TO COMPREHEND, PROCESS AND RETAIN INFORMATION. P)CONTINUE POC AND PROVIDE SAFE ENVIRONMENT.
[2019-07-01 08:31] VITALS: BP 130/70
--- NOTE | 2019-07-01 12:00 | NUR ---
RECEIVED IN HALLWAY OUTSIDE OF NURSES STATION. CALM AND COOPERATIVE WITH CARE ADN ASSESSMENT. NO AGGRESSION. REDIRECT AND REORIENT NEEDED. EATING LUNCH AT THIS TIME. CONTINUE PLAN OF CARE.
--- NOTE | 2019-07-01 16:26 | PN ---
PATIENT:KATJA MAZARIEGOS MEDICAL RECORD: [id number] LOCATION:[facility] ADMISSION DATE: 06/14/19 PROGRESS NOTE DATE OF SERVICE: 06/28/2019 SUBJECTIVE: The patient's case was discussed with staff. He has no new complaint. OBJECTIVE: The patient is disorganized with very limited insight about his situation. ASSESSMENT: Dementia. PLAN: Brief supportive and educational interventions were made. Long-term prognosis is guarded. I anticipate he can be transitioned to the senior care soon. TRANSINT:[id number] Voice Confirmation ID: [id number] DOCUMENT ID: [id number] VALERIO BRICENO MD at 1626 CC: [id number] DICTATION DATE: 06/28/19 1748 ENGINEERING PROGRAM ANALYST: 06/28/19 2329 ADM IN [place] [address] [place] [address]
--- NOTE | 2019-07-01 19:15 | NUR ---
RECEIVED IN DAYROOM. SITTING QUIETLY AT THE TABLE. CALM AND COOPERATIVE WITH CARE AND ASSESSMENT. NO SIGNS OF AGGRESSION. REDIRECT AND REORIENT NEEDED. CONTINUES TO SIT QUIETLY AT TABLE. CONTINUE PLAN OF CARE.
[2019-07-01 19:28] VITALS: BP 107/53
--- NOTE | 2019-07-02 05:57 | NUR ---
DRESSING CHANGE TO STAGE 2 WOUND ON BUTTOCKS.
[2019-07-02 08:43] VITALS: BP 140/70
--- NOTE | 2019-07-02 12:00 | NUR ---
RECEIVED IN HALLWAY OUTSIDE OF NURSES STATION. CALM AND COOPERATIVE WITH CARE AND ASSESSMENT. YELLING OUT AT TIMES. NO AGGRESSION. REDIRECT AND REORIENT NEEDED. EATING LUNCH AT THIS TIME. CONTINUE PLAN OF CARE.
[2019-07-02 19:22] VITALS: BP 112/56
--- NOTE | 2019-07-02 19:32 | NUR ---
RECEIVED IN DAYROOM. SITTING AT TABLE IN A RECLINER WITH PEERS AT HIS SIDE. CALM AND COOPERATIVE WITH CARE AND ASSESSMENT. NO SIGNS OF AGGRESSION. REDIRECT AND REORIENT NEEDED. CONTINUES TO SIT CALMLY IN CAYROOM. CONTINUE PLAN OF CARE.
--- NOTE | 2019-07-03 02:22 | NUR ---
YELLING OUT FROM BED. UNABLE TO REDIRECT.
[2019-07-03 07:47] VITALS: BP 137/68
--- NOTE | 2019-07-03 08:30 | NUR ---
RECEIVED IN HALLWAY OUTSIDE OF NURSES STATION. YELLING OUT. BECOMES AGITATED AT TIMES. NO AGGRESSION. REDIRECT AND REORIENT NEEDED. EATING BREAKFAST AT THIS TIME. CONTINUE PLAN OF CARE.
--- NOTE | 2019-07-03 11:32 | PN ---
PATIENT:KATJA MAZARIEGOS MEDICAL RECORD: [id number] LOCATION:[facility] ADMISSION DATE: 06/14/19 PROGRESS NOTE DATE OF SERVICE: 07/02/2019 SUBJECTIVE: The patient's case was discussed with staff. He has no new complaint. OBJECTIVE: The patient is in good behavioral control. He has limited insight about his situation. He is generally tolerating his medicines well. He is much calmer and I anticipate he can reasonably be transitioned to a [facility] soon. ASSESSMENT: No change in diagnoses. PLAN: Current medicines have been reviewed. I am going to increase the dose of the Namenda to 10 mg twice daily. TRANSINT:[id number] Voice Confirmation ID: [id number] DOCUMENT ID: [id number] VALERIO BRICENO MD at 1132 CC: [id number] DICTATION DATE: 07/02/19 1509 VICE PRESIDENT COMPLIANCE: 07/02/191946 ADM IN [facility] [address] [place] [address]
[2019-07-03] MEDS ORDERED: LIPITOR10 MG PO (12:57)
[2019-07-03] MEDS ORDERED: DESERYL PO (12:58)
[2019-07-03] MEDS ORDERED: CELEXA20 MG PO (12:58)
[2019-07-03] MEDS ORDERED: NAMENDA5 MG PO (12:58)
[2019-07-03] MEDS ORDERED: PERPHENAZINE2 MG PO (12:58)
[2019-07-03] MEDS ORDERED: PROTONIX40 MG PO (12:59)
[2019-07-03] MEDS ORDERED: VITAMIN D5000 UNI3 PO (12:59)
[2019-07-03] MEDS ORDERED: Senokot TAB PO (12:59)
[2019-07-03] MEDS ORDERED: Megace ES [CHEMO] PO (12:59)
[2019-07-03] MEDS ORDERED: CALMOSEPTINE OI71 GM TOPICAL (13:00)
--- NOTE | 2019-07-03 19:25 | NUR ---
RECEIVED IN DINING AREA. SITTING IN A RECLINING CHAIR YELLING OUT LOUDLY AT TIMES. CALM AND COOPERATIVE WITH CARE AND ASSESSMENT. NO SIGNS OF AGGRESSION. REDIRECT AND REORIENT NEEDED. CONTINUES TO YELL OUT AT TIMES. CONTINUE PLAN OF CARE.
[2019-07-03 19:43] VITALS: BP 94/63
--- NOTE | 2019-07-04 01:11 | NUR ---
YELLING OUT CONTINUOUSLY. UNABLE TO REDIRECT.
[2019-07-04 08:15] VITALS: BP 129/74
--- NOTE | 2019-07-04 10:17 | PN ---
PATIENT:KATJA MAZARIEGOS MEDICAL RECORD: [id number] LOCATION:[facility] ADMISSION DATE: 06/14/19 PROGRESS NOTE DATE OF SERVICE: 07/03/2019 SUBJECTIVE: The patient's case was discussed with staff. He has no new complaint. OBJECTIVE: The patient slept well last night. He did not eat well yesterday. He has not been aggressive today. He is at or near his baseline level of functioning and I anticipate that he can be discharged soon. The family is signing paperwork with the [facility] at this time and hopefully, he can be discharged soon. TRANSINT:[id number] Voice Confirmation ID: [id number] DOCUMENT ID: [id number] VALERIO BRICENO MD at 1017 CC: [id number] DICTATION DATE: 07/03/19 1216 VESSEL MASTER: 07/03/19 1814 ADM IN [facility] [address] [place] [address]
--- NOTE | 2019-07-04 10:24 | NUR ---
The patient knows his name, he yells out intermittantly and he doesn't know why and doesn't ask for anything, he stands and transfers with assist. He has not shown any aggression. He has a broken area on his buttocks and he is getting calmoseptine applied to the area. Provide prescribed meds. The patient is compliant with meds as long as the meds are crushed and put in pudding or ice cream. He is supposed to d/c today. Paperwork is ready and he is packed and ready. Shawn Chong RN will fax d/c orders, medication list, and call report to the senior care. Continue POC.
--- NOTE | 2019-07-04 10:30 | NUR ---
NURSE CHANGED MEPILEX BORDER APPLIED TO AREA ON BUTTOCKS.PT TOLERATED WELL.
--- NOTE | 2019-07-04 12:36 | NUR ---
NURSE CALLED REPORT TO [facility] TO NURSE BRYANT. PAPERWORK FAXED TO [facility] AND PCP.
--- NOTE | 2019-07-04 13:03 | NUR ---
Nutrition Follow-up: Overall PO intake improved. Noted plans to d/c today. Diet: Regular, Mech Soft, Ensure TID PO intake: 33% avg x 9 meals (17% avg x 9 meals last wk) Wt: 156# (06/30); 155# (06/23); 157# (06/16) Last BM: 07/02 No new labs Meds noted: Milk of Magnesia, Megace, vitamin D, Senokot, Protonix -Encourage PO intake and honor food preferences within diet restrictions. -Monitor wt. -RD following.
--- NOTE | 2019-07-04 13:46 | NUR ---
FACILITY PICKED PT UP WITH OWN W/C. PAPERWORK SENT WITH PT ALONG WITH [facility]ONG[facility]. PT TRANFER WITH MODERATE ASSIST. PT COOPERATIVE WITH STAFF AND VERY FRIENDLY WITH STAFF. PT IN A GOOD MOOD.
--- NOTE | 2019-07-05 08:27 | PN ---
PATIENT:KATJA MAZARIEGOS MEDICAL RECORD: [id number] LOCATION:[facility] ADMISSION DATE: 06/14/19 PROGRESS NOTE DATE OF SERVICE: 07/04/2019 SUBJECTIVE: The patient's case was discussed with staff. He has no new complaint. OBJECTIVE: The patient is in good behavioral control. He is severely impaired cognitively and only partially oriented. ASSESSMENT: Dementia. PLAN: The patient will be transitioned out of the hospital today. His long-term prognosis is guarded. Both supportive and educational interventions were made. TRANSINT:[id number] Voice Confirmation ID: [id number] DOCUMENT ID: [id number] VALERIO BRICENO MD at 0827 CC: [id number] DICTATION DATE: 07/04/19 1340 SPIRAL GEAR GENERATOR: 07/04/19 1535 DIS IN 07/04/19 [place] [id number] [place] [address]
--- NOTE | 2019-07-05 08:27 | DS ---
PATIENT:KATJA MAZARIEGOS :38 MEDICAL RECORD: [id number] DISCHARGE SUMMARY ADMISSION DATE: 06/14/19 DISCHARGE DATE: 07/04/19 IDENTIFYING DATA: The patient is 78 years old and he was admitted to the hospital on a voluntary basis. CHIEF COMPLAINT: Confusion. HISTORY OF PRESENT ILLNESS: The patient lives at home alone. His 7 years ago and his children live out of state. He apparently has developed dementia. He fell at home and was taken to [facility]. He was found to have a small subdural hematoma that did not need surgical reduction. He was subsequently admitted to rehab for deconditioning, but was unable to participate in the activities there because he was so confused, agitated, and combative with the staff. For these reasons and under these circumstances, he was transferred to the behavioral unit for evaluation and treatment. HOSPITAL COURSE: The patient was admitted to the hospital and fully evaluated from both a medical, psychological, and social standpoint. He was treated with both mood stabilizing and memory enhancing medications and showed minimal improvement in his cognition, but dramatic improvement in his behaviors. He was subsequently transitioned to a long-term care setting. DISCHARGE DIAGNOSES: AXIS I: Major neurocognitive disorder of the Alzheimer's type with behavioral disturbances. AXIS II: None. AXIS III: Hypertension, coronary artery disease, subdural hematoma. AXIS IV: Moderate. AXIS V: Global assessment of functioning is 35. PLAN: At the time of discharge, the patient was in good behavioral control and had no evidence of acute or direct dangerousness to himself or others. He was tolerating his medications well. His prognosis is guarded and he is in need of 09-qmfe-m-day supervision. TRANSINT:[id number] Voice Confirmation ID: [id number] DOCUMENT ID: [id number] VALERIO BRICENO MD at 0827 CC: [id number] DICTATION DATE: 07/04/19 1426 WATCH REPAIRER: 07/05/19 0514 DIS IN 07/04/19 [facility] [address] [place] [id number]
== END 2019-07-04 12:30 | DRG 57 ==
LOC: D.PSYCH 16:41
PROVIDERS: ADMIT Psychiatry & Neurology Psychiatry; ATTEND Psychiatry & Neurology Psychiatry
DX: G30.9 Alzheimer's disease, unspecified (principal); F02.81 Dementia in other diseases classified elsewhere, unspecified severity, with behavioral disturbance; F01.51 Vascular dementia, unspecified severity, with behavioral disturbance; I10 Essential (primary) hypertension; I25.10 Atherosclerotic heart disease of native coronary artery without angina pectoris; X58.XXXA Exposure to other specified factors, initial encounter; S06.5X9S Traumatic subdural hemorrhage with loss of consciousness of unspecified duration, sequela; X58.XXXS Exposure to other specified factors, sequela; F32.9 Major depressive disorder, single episode, unspecified; Z66 Do not resuscitate; K59.01 Slow transit constipation; D50.9 Iron deficiency anemia, unspecified; I48.0 Paroxysmal atrial fibrillation; E78.2 Mixed hyperlipidemia; Z74.09 Other reduced mobility; E55.9 Vitamin D deficiency, unspecified; R63.0 Anorexia; Z68.23 Body mass index [BMI] 23.0-23.9, adult